=== PATIENT | female | born 1975 | race Caucasian/White ===

== ENCOUNTER 2021-07-14 20:33 | Emergency (ER) | payer SELFPAY ==
[~2021-07-14 20:33] MED LIST: BACTRIM DS TAB1 EACH PO; BACTROBAN OINT22 GM EXT
[2021-07-15] MEDS ORDERED: IBUPROFEN600 MG PO (00:58)
== END 2021-07-15 01:33 | disposition home or self-care (01) ==
LOC: ER1 20:33
DX: S50.11XA Contusion of right forearm, initial encounter (principal); M54.50 Low back pain, unspecified; J45.909 Unspecified asthma, uncomplicated; Z88.0 Allergy status to penicillin; W10.9XXA Fall (on) (from) unspecified stairs and steps, initial encounter; Y92.830 Public park as the place of occurrence of the external cause
CPT/HCPCS: 72128; 72131; 73090; 73130; 73502; 73562; 96374; 96375; 99284; J1885; J2270; J2405